=== PATIENT | male | born 1940 | race Caucasian/White ===

== ENCOUNTER 2023-01-01 09:44 | Emergency (ER) | payer MEDICARE, OTHER, SELFPAY ==
[2023-01-01] VITALS (29 sets, daily range): BP systolic 133–162; BP diastolic 74–86; PULSE 59–77; RESP 15–25; TEMP 36.6; O2SAT 93–99
--- NOTE | ~2023-01-01 | CT_ITS ---
Clinical Indication: Abdominal pain, left lower lobe pneumonia CT Scan of the Chest, Abdomen, and Pelvis with Contrast: Technique: Contiguous sections were acquired throughout the chest, abdomen, and pelvis after intraven ous administration of 100 cc of Omnipaque 350. Dose reduction technique was used on this scan by uti lizing automated exposure control and iterative reconstruction technique. The dose-length product (DL P) was 1328.77 mGy-cm. Findings: There is no evidence of any significant mediastinal, hilar or axillary lymphadenopathy. Coronary vero ry calcifications are present. The mediastinal soft tissues and vascular structures otherwise appear normal. There is no evidence of pleural or pericardial effusion. There are extensive bilateral calcified pleu ral plaques. The lungs are otherwise clear. No pulmonary nodules or infiltrates are noted. There is a 2.1 cm hypodense, noncystic mass in the right hepatic lobe (axial image 119). The spleen, pancreas, adrenals and right kidney are within normal limits. 3 mm nonobstructing left lower pole carri al stone present. Cholecystectomy clips are present. There are atherosclerotic calcifications of the aorta. No lymphadenopathy. No bowel obstruction or bowel wall thickening. There is no evidence to suggest acute appendicitis. Suggestion of mild wall thickening along the right side of the urinary bladder. Prostate gland is enl arged, and indents the bladder base. Fat-containing right inguinal hernia present. Impression: Multiple calcified pleural plaques. No pulmonary parenchymal airspace disease. 2.1 cm hypodense, noncystic mass in the right hepatic lobe, indeterminate. Metastasis/neoplasm is not excluded. Follow-up pre and postcontrast MR recommended to further assess. Possible mild wall thickening of the right-sided urinary bladder, indeterminate. Subtle neoplasm is n ot excluded. Consider cystoscopy as indicated. Moderate to large fat-containing right femoral hernia. Enlarged prostate gland. 3 mm nonobstructing left lower pole renal stone. Reviewed, dictated and finalized at location . Impression: Multiple calcified pleural plaques. No pulmonary parenchymal airspace disease. 2.1 cm hypodense, noncystic mass in the right hepatic lobe, indeterminate. [place] stasis/neoplasm is not excluded. Follow-up pre and postcontrast MR recommended to further assess. Possible mild wall thickening of the right-sided urinary bladder, indeterminate . Subtle neoplasm is not excluded. Consider cystoscopy as indicated. Moderate to large fat-containing right femoral hernia. Enlarged prostate gland. 3 mm nonobstructing left lower pole renal stone.
--- NOTE | ~2023-01-01 | XR_ITS ---
Clinical Indication: Cough AP and lateral views of the chest: Comparison: None Findings: There is irregular airspace opacity overlying the left upper lobe peripherally. There is mi ld haziness at the left lung base. Right lung clear.. Cardiomediastinal silhouette is within normal limits. Bones and soft tissues are unremarkable. Impression: Irregular airspace opacities the left upper and lower lobes. Left upper lobe opacities appear calcifi ed, possibly representing osseous structures are calcified pleural plaque or other calcified density. Questionable pneumonia left lung base. Consider CT to better evaluate pulmonary findings. Reviewed, dictated and finalized at location . Impression: Irregular airspace opacities the left upper and lower lobes. Left upper lobe op acities appear calcified, possibly representing osseous structures are calcifie d pleural plaque or other calcified density. Questionable pneumonia left lung b ase. Consider CT to better evaluate pulmonary findings.
--- NOTE | 2023-01-01 11:08 | ECG_ITS ---
Measurements Intervals [place] Rate: 63 P: 50 MN: 169 QRS: 1 QRSD: 87 T: 64 QT: 384 QTc: 395 Interpretive Statements SINUS RHYTHM NONSPECIFIC T-WAVE ABNORMALITY- HIGH LATERAL LEADS BASELINE ARTIFACT- I, II, AVR, AVF BORDERLINE ECG NO PREVIOUS ECG AVAILABLE FOR COMPARISON Electronically Signed On 01-01-2023 13:20:49 CDT by Andrei Irene D.O.
--- NOTE | 2023-01-01 11:11 | ED.ABDPAIN ---
HPI - Abdominal Pain General Chief Complaint: Abdominal Pain Stated Complaint: lump stomach Time Seen by Provider: 01/01/23 10:23 Source: patient and family Mode of arrival: ambulatory Limitations: dementia History of Present Illness HPI narrative: This is an 82-year-old male that presents to the emergency department for right-sided abdominal pain. Ongoing over the last couple of days. His reports he has had a cold over the last week. Reporting congestion, sore throat, and cough. Reports over the last couple of days he has been complaining of some right-sided abdominal pain which concerned her and prompted her to bring him in for evaluation. Denies fevers, vomiting, or diarrhea. Related Data Allergies Allergy/AdvReac Type Severity Reaction Status Date / Time No Known Allergies Allergy Verified 01/01/23 10:06 Review of Systems Review of Systems: CONSTITUTIONAL: Denies fever ENT: Reports rhinorrhea, congestion, sore throat CARDIOVASCULAR: Denies chest pain RESPIRATORY: Reports cough. Denies dyspnea. GASTROINTESTINAL: Reports abdominal pain. Denies nausea, vomiting, or diarrhea. GENITOURINARY: Denies dysuria or hematuria. All systems reviewed & are unremarkable except as noted in HPI and below PMFSH Past Medical History Medical History (Updated 01/01/23 @ 14:36 by Aleta Calhoun PA-C) History of diabetes mellitus Social History Social History (Updated 01/01/23 @ 11:13 by Aleta Calhoun PA-C) Smoking status: Never smoker Exam Narrative: GENERAL: Well-appearing, well-nourished, and in no acute distress. HEAD: Normocephalic, atraumatic. EYES: EOMI. ENT: Nares clear, no rhinorrhea or epistaxis. Mucous membranes moist. Oropharynx without tonsillar hypertrophy exudate or other lesions. Right TM pearly leyva non-bulging. Left cerumen impaction NECK: Supple. No adenopathy or masses. CHEST: Clear to auscultation. No respiratory distress. No wheezes rales or rhonchi HEART: Regular rate and rhythm. No murmur heard. Normal peripheral pulses. ABDOMEN: Soft, nondistended, normal active bowel sounds. Tender to palpation in the right side of the abdomen, without guarding EXTREMITIES: Normal range of motion. No edema. SKIN: Warm, dry, no rash. NEURO: No focal deficits. Alert and oriented x3. PSYCH: Normal mood and affect Course Course Emergency Course: Patient and family updated on work-up and agree with plan of care Vital Signs Vital signs: Vital Signs Pulse Rate 77 01/01/23 10:04 Respiratory Rate 21 H 01/01/23 10:04 Temperature 98 F 01/01/23 10:06 Pulse Rate 70 01/01/23 13:46 Respiratory Rate 25 H 01/01/23 13:46 Blood Pressure 148/75 H 01/01/23 13:46 Pulse Oximetry 97 01/01/23 13:46 Oxygen Delivery Room Air 01/01/23 10:06 MDM - Abdominal Pain MDM Narrative Medical decision making narrative: Patient presents to the emergency department for intermittent right-sided lower chest/upper abdominal pain ongoing over the last couple of days. He is afebrile and nontoxic-appearing. His vitals are stable. CBC without leukocytosis. Metabolic panel with elevation in blood glucose to 200. Patient is a known diabetic. No other concerning findings. EKG without concerning changes and baseline troponin is negative. UA without evidence of infection. Chest x-ray shows possible pneumonia. Recommend further evaluation with CT. CT scan of the chest/abdomen/pelvis obtained which shows no pulmonary parenchymal airspace disease. A hypodense mass of the right hepatic lobe. Recommend MRI. Possible mild wall thickening of the urinary bladder. Recommend cystoscopy. Moderate to large fat-containing right femoral hernia. Enlarged prostate. 3 mm nonobstructing renal stone. Patient and family were updated on work-up. Instructed he should have follow-up with primary provider and a general surgeon. He was given warnings to return to the ER Differential Diagnosis Differential diagnosis: Lik
[2023-01-01 12:06] LABS: Appearance Urine Clear (Clear); Bilirubin Urine Negative (Negative); Blood Urine Negative (Negative); Color Urine Yellow (Yellow); Glucose Urine UA Negative (Negative); Ketones Urine Negative (Negative); Leukocyte Esterase Ur Negative LEU/UL (Negative); Nitrate Urine Negative (Negative); Protein Urine Negative (Negative); Specific Grav Ur 1.021 (1.001-1.035); Urobilinogen Urine 0.2 mg/dL (<2.0)
[2023-01-01 12:08] LABS: Add Urine Microscopic? NO
[2023-01-01 12:21] LABS: Basophils Percent Auto 0.5 % (0.2-1.2); Eosinophils Absolute Auto 0.2 K/mm3 (0-0.3); Eosinophils Percent Auto 2.9 % (0-4.4); Hematocrit 42.4 % (42.0-52.0); Hemoglobin 14.4 g/dL (14.0-18.0); Immature Granulocyte Absolute 0.02 K/mm3 (0.00-0.031); Immature Granulocyte Percent A 0.3 % (0-0.5); Lymphocytes Absolute Auto 3.09 K/mm3 (0.9-3.2); Mean Corpuscular Hemoglobin 29.1 pg (26-34); Mean Corpuscular Volume 85.7 fl (80-100); Mean Platelet Volume 10.3 fl (7.4-10.4); Monocytes Absolute Auto 0.9 K/mm3 (0.1-0.6); Monocytes Percent Auto 11.6 % (2.6-8.5); Neutrophils Absolute Auto 3.1 K/mm3 (1.3-6.7); Neutrophils Percent Auto 42.7 % (45.5-73.1); Platelet Count Result 219 k/mm3 (150-375); Red Blood Count 4.95 M/mm3 (4.6-6.20); Red Cell Distribution Width 12.9 % (11.5-14.5); White Blood Count 7.4 K/mm3 (4.5-10.0)
[2023-01-01 12:34] LABS: Alanine Aminotransferase 42 U/L (6-50); Alkaline Phosphatase 104 U/L (38-126); Anion Gap 10 mmol/L (8-16); Aspartate Amino Transferase 38 U/L (17-59); Bilirubin,Total 0.6 mg/dL (0.2-1.3); Blood Urea Nitrogen 22 mg/dL (9-20); Calcium 8.9 mg/dL (8.4-10.2); Carbon Dioxide 25 mmol/L (22-30); Chloride 100 mmol/L (98-107); Estimated CRCL calculation 53 ml/min; Estimated Glomerular Filt Rate > 60; Glucose 200 mg/dL (65-110); Lipase 79 U/L (23-300); Sodium 135 mmol/L (137-145)
[2023-01-01 12:41] LABS: Influenza A QL RT-PCR Negative (Negative); Influenza B QL RT-PCR Negative (Negative); SARS-CoV-2 RNA PCR Negative (Negative)
[2023-01-01 12:46] LABS: Troponin I < 0.012 ng/mL (0.000-0.034)
== END 2023-01-01 15:14 | disposition home or self-care (01) ==
PROVIDERS: Emergency Provider Physician Assistant
DX: K76.89 Other specified diseases of liver (principal); N32.9 Bladder disorder, unspecified; K41.90 Unilateral femoral hernia, without obstruction or gangrene, not specified as recurrent; R10.9 Unspecified abdominal pain; Z20.822 Contact with and (suspected) exposure to COVID-19; N20.0 Calculus of kidney; N40.0 Benign prostatic hyperplasia without lower urinary tract symptoms; R94.31 Abnormal electrocardiogram [ECG] [EKG]
CPT/HCPCS: 36415; 71046; 71260; 74177; 80053; 81003; 83690; 84484; 85025; 87636; 93005; 99284; Q9967

== ENCOUNTER 2023-12-29 14:01 | Emergency (ER) | payer MEDICARE, OTHER, SELFPAY ==
[2023-12-29 14:03] VITALS: BP 122/78; PULSE 91; RESP 19; TEMP 36.6; O2SAT 97
[2023-12-29 16:27] VITALS: BP 177/87; PULSE 83; RESP 20; O2SAT 95
--- NOTE | 2023-12-29 16:27 | PC.NURSE ---
Pt reports soaking ankle in epsom salts and seeing decreased swelling, and improvement in drainage.
--- NOTE | 2023-12-29 16:40 | ED_ITS ---
HPI - Wound/Laceration General Chief Complaint: Wound/Laceration Stated Complaint: wound Time Seen by Provider: 12/29/23 16:25 Source: patient Mode of arrival: ambulatory Limitations: no limitations History of Present Illness HPI narrative: This is a 83 year old male that presents to the ER for Related Data Allergies Allergy/AdvReac Type Severity Reaction Status Date / Time No Known Allergies Allergy Verified 12/29/23 14:06 [facility] Past Medical History Medical History (Updated 12/29/23 @ 16:42 by Aleta Calhoun PA-C) History of diabetes mellitus Social History Social History (Updated 01/01/23 @ 11:13 by Aleta Calhoun PA-C) Smoking status: Never smoker Course Vital Signs Vital signs: Vital Signs Temperature 97.8 F 12/29/23 14:03 Pulse Rate 91 12/29/23 14:03 Respiratory Rate 19 12/29/23 14:03 Blood Pressure 122/78 12/29/23 14:03 Pulse Oximetry 97 12/29/23 14:03 Temperature 97.8 F 12/29/23 14:03 Pulse Rate 83 12/29/23 16:27 Respiratory Rate 20 12/29/23 16:27 Blood Pressure 177/87 H 12/29/23 16:27 Pulse Oximetry 95 12/29/23 16:27 Discharge Plan Discharge Clinical Impression: Cellulitis Qualifiers: Site of cellulitis: extremity Site of cellulitis of extremity: lower extremity Laterality: right Qualified Code(s): L03.115 - Cellulitis of right lower limb Patient Disposition: Home, Self-Care Condition: Stable Instructions: Antibiotic Form, Cellulitis (ED), Acute Wounds (ED) Additional Instructions: Return if symptoms worsen or concerns: any increase in redness, swelling, pain or fever over 101 Take antibiotics as directed. Clean wound with mild soapy water. Apply antibiotic ointment daily. Follow up with your clinical research monitor Prescriptions: New mupirocin 2 % ointment 1 applic topical BID 7 Days Qty: 15 0RF cephalexin 500 mg capsule 500 mg PO Q6H 7 Days Qty: 28 0RF Follow-up/Referrals: [facility] [Primary Care Provider] - 1 Week
== END 2023-12-29 17:07 | disposition home or self-care (01) ==
PROVIDERS: Emergency Provider Physician Assistant
DX: L03.115 Cellulitis of right lower limb (principal); E11.9 Type 2 diabetes mellitus without complications
CPT/HCPCS: 87070; 87081; 87181; 87205; 99283